=== PATIENT | female | born 1995 | race Two or more races ===

== ENCOUNTER 2024-07-13 22:12 | Day surgery (SDC) | payer BC ==
[2024-07-13 22:28] VITALS: BMI 38.9
[2024-07-13] MEDS ORDERED: hydrALAZINE 20 MG/ML VIAL SLOW IVP PRN (22:53)
== END 2024-07-13 23:57 | disposition home or self-care (01) ==
LOC: CSHLD/OP 22:12
PROVIDERS: ATTEND Obstetrics & Gynecology
DX: O36.8130 Decreased fetal movements, third trimester, not applicable or unspecified (principal); Z3A.37 37 weeks gestation of pregnancy; Z79.899 Other long term (current) drug therapy
CPT/HCPCS: 76819; 99282

== ENCOUNTER 2024-07-30 01:28 | Inpatient (IN) | payer BC ==
[2024-07-30 01:54] VITALS: BMI 38.7
[2024-07-30] MEDS ORDERED: Misoprostol 200 MCG TAB PR PRN (02:33)
[2024-07-30] MEDS ORDERED: Docusate 100 MG CAP PO PRN (02:33)
[2024-07-30] MEDS ORDERED: hydrALAZINE 20 MG/ML VIAL SLOW IVP PRN (02:33)
[2024-07-30] MEDS ORDERED: Promethazine HCl 25 MG/ML VIAL IM PRN ×2 (02:33→12:51)
[2024-07-30] MEDS ORDERED: Ondansetron PF 4 MG/2 ML Vial IVP PRN ×2 (02:33→12:51)
[2024-07-30] MEDS ORDERED: Diphenoxylate HCl/Atropine Tablet PO PRN (02:33)
[2024-07-30] MEDS ORDERED: Methylergonovine 0.2 MG/ML VIAL IM PRN (02:33)
[2024-07-30] MEDS ORDERED: Acetaminophen 500 MG TAB PO PRN (02:33)
[2024-07-30] MEDS ORDERED: Tranexamic Acid 1,000 MG/10 ML VIAL IVP PRN (02:33)
[2024-07-30] MEDS ORDERED: Carboprost 250 MCG/ML AMP IM PRN (02:33)
[2024-07-30] MEDS ORDERED: HYDROcodone/Acetaminophen 5/325 mg Tablet PO PRN (02:36)
[2024-07-30] MEDS ORDERED: Lidocaine 1% (PF) 30 ML VIAL SC PRN (02:36)
[2024-07-30] MEDS ORDERED: Ibuprofen 800 MG TAB PO PRN (02:36)
[2024-07-30] MEDS ORDERED: Oxytocin 30 units/NS 500 ML 500 ML IV SCH (02:45)
[2024-07-30 03:04] LABS: Hematocrit 34.4 % (34.9-44.5); Hemoglobin 11.7 g/dL (12.0-15.5); Mean Corpuscular Hemoglobin 30.8 pg (27.0-33.0); Mean Corpuscular Volume 90.5 fL (81.6-98.3); Mean Platelet Volume 9.9 fL (7.4-10.4); Platelet Count 221 10x3/uL (150-450); RBC Distribution Width 12.8 % (11.5-14.5); White Blood Cell (WBC) Count 11.7 10x3/uL (3.5-10.5)
[2024-07-30 03:34] LABS: HBsAg Index 0.23 S/CO (0-0.99); Hep B Surf Ag - L&D Non-Reactive S/CO (NonReactive)
[2024-07-30 03:36] LABS: Syphilis Antibody Nonreactive (Nonreactive); Syphilis Antibody Index 0.05 S/CO (<1.00 Non-Reactive)
[2024-07-30] MEDS: Oxytocin 30 units/NS 500 ML 500 ML IV SCH (06:42)
[2024-07-30] MEDS ORDERED: Bupivacaine HCl 0.5%/Epinephrine 1:200,000/PF 30 ml Vial ONE (08:00)
[2024-07-30] MEDS: fentaNYL 50 mcg/mL 1 mL Vial SLOW IVP PRN (12:40)
[2024-07-30] MEDS: fentaNYL/Ropivacaine Epidural 100 ML ONE (12:41)
[2024-07-30] MEDS ORDERED: ePHEDrine Sulfate 50 MG/10 ML VIAL SLOW IVP PRN (12:51)
[2024-07-30] MEDS ORDERED: Moisturizing Cream (Eucerin) 113 GM JAR TOP PRN (12:51)
[2024-07-30] MEDS ORDERED: diphenhydrAMINE 50 MG/ML VIAL IVP PRN (12:51)
[2024-07-30] MEDS ORDERED: Acetaminophen 325 MG TAB PO PRN (12:51)
[2024-07-30] MEDS ORDERED: Naloxone HCl 0.4 mg/ml Vial IVP PRN ×2 (12:51)
[2024-07-30] MEDS ORDERED: Lactated Ringer's 500 ML IV PRN (12:51)
[2024-07-30] MEDS ORDERED: fentaNYL 2 mcg/Ropivacaine 0.2% Epidural 100 ML CADD EPIDURAL SCH (13:00)
[2024-07-30] MEDS ORDERED: Communication Order-Pharmacy FS SCH (13:00)
[2024-07-30] MEDS: CEFAZOLIN 2 GM VIAL ONE (19:09)
[2024-07-30] MEDS ORDERED: Famotidine/PF 20 mg/2ml Vial SLOW IVP PRN (19:20)
[2024-07-30] MEDS ORDERED: Bicitra 30 ML UDCUP PO PRN (19:20)
[2024-07-30] MEDS ORDERED: CEFAZOLIN 2 GM in Sodium Chloride 0.9% 100 ML IVPB SCH (19:30)
[2024-07-30] MEDS ORDERED: Azithromycin 500 MG in Sodium Chloride 0.9% 250 ML 250 ML IVPB SCH (19:30)
[2024-07-30] MEDS: Lactated Ringer's 1,000 ML IV SCH (22:12)
[2024-07-31] MEDS ORDERED: Lanolin Ointment 7 GM TUBE TOP PRN (00:01)
[2024-07-31] MEDS ORDERED: diphenhydrAMINE 25 MG CAP PO PRN (00:01)
[2024-07-31] MEDS ORDERED: Ondansetron PF 4 MG/2 ML Vial IVP PRN ×3 (00:01→02:23)
[2024-07-31] MEDS: Ampicillin 2 GM VIAL ONE (00:01)
[2024-07-31] MEDS ORDERED: hydrALAZINE 20 MG/ML VIAL SLOW IVP PRN (00:01)
[2024-07-31] MEDS: Gentamicin 340 MG, Admixture Fee 1 EACH in Sodium Chloride 0.9% 100 ML IVPB SCH (00:31)
[2024-07-31] MEDS ORDERED: HYDROmorphone 0.5 MG/0.5 ML SYRINGE SLOW IVP PRN (02:23)
[2024-07-31] MEDS ORDERED: diphenhydrAMINE 50 MG/ML VIAL IVP PRN (02:23)
[2024-07-31] MEDS ORDERED: fentaNYL 50 mcg/mL 1 mL Vial SLOW IVP PRN (02:23)
[2024-07-31] MEDS ORDERED: Naloxone HCl 0.4 mg/ml Vial IVP PRN ×2 (02:23)
[2024-07-31] MEDS ORDERED: Naloxone HCl 0.4 mg/ml Vial IV PRN (02:23)
[2024-07-31] MEDS ORDERED: Promethazine HCl 25 MG/ML VIAL IM PRN (02:23)
[2024-07-31] MEDS ORDERED: Meperidine HCl/PF 25 MG (1 mL) VIAL SLOW IVP PRN (02:23)
[2024-07-31] MEDS ORDERED: Moisturizing Cream (Eucerin) 113 GM JAR TOP PRN (02:23)
[2024-07-31] MEDS ORDERED: Communication Order-Pharmacy FS SCH (02:30)
[2024-07-31] MEDS: Ketorolac Tromethamine 30 MG (1 mL) VIAL IVP SCH (02:38)
[2024-07-31] MEDS: fentaNYL 50 mcg/mL 1 mL Vial ONE ×4 (06:08→06:09)
[2024-07-31] MEDS: Dexamethasone 10 MG/ML VIAL ONE (06:08)
[2024-07-31] MEDS: Azithromycin 500 MG VIAL ONE (06:08)
[2024-07-31] MEDS: Morphine PF 10 MG/10 ML VIAL ONE (06:08)
[2024-07-31] MEDS: Oxytocin 10 UNITS/ML VIAL ONE (06:09)
[2024-07-31] MEDS: Boostrix 0.5 ML (Tdap) VIAL (>/=7 yrs of age) IM ONE (06:09)
[2024-07-31] MEDS: Ampicillin 2 GM in Sodium Chloride 0.9% 100 ML IVPB SCH (06:09)
[2024-07-31] MEDS: Ondansetron PF 4 MG/2 ML Vial ONE (06:09)
[2024-07-31] MEDS: Bupivacaine 0.25% HCL 30 ML VIAL ONE (06:10)
[2024-07-31] MEDS: Ferrous Sulfate 325 MG TAB PO SCH (09:54)
[2024-07-31] MEDS: Prenatal Vitamin 1 TAB PO SCH (09:57)
[2024-07-31] MEDS: Ketorolac Tromethamine 30 MG (1 mL) VIAL IVP PRN (11:56)
[2024-07-31] MEDS ORDERED: Zolpidem Tartrate 5 MG TAB PO PRN (14:31)
[2024-07-31] MEDS: HYDROcodone/Acetaminophen 5/325 mg Tablet PO PRN (15:32)
[2024-08-01 00:32] LABS: #Basophils 0.05 10x3/uL (0.0-0.2); #Eosinophils 0.04 10x3/uL (0.0-0.5); #Monocytes 1.34 10x3/uL (0.0-1.1); #Neutrophils 16.54 10x3/uL (1.5-8.4); %Basophils 0.2 % (0.0-2.0); %Eosinophils 0.2 % (0.0-6.0); %Lymphocytes 14.7 % (18.0-47.0); %Monocytes 6.3 % (0.0-10.0); %Neutrophils 77.3 % (40.0-75.0); Hematocrit 28.7 % (34.9-44.5); Hemoglobin 10.2 g/dL (12.0-15.5); Mean Corpuscular HGB CONC 35.5 g/dL (32.0-36.0); Mean Corpuscular Hemoglobin 32.4 pg (27.0-33.0); Mean Corpuscular Volume 91.1 fL (81.6-98.3); Mean Platelet Volume 9.7 fL (7.4-10.4); Platelet Count 213 10x3/uL (150-450); RBC Distribution Width 13.2 % (11.5-14.5); Red Blood Cell (RBC) Count 3.15 10x6/uL (3.90-5.03); White Blood Cell (WBC) Count 21.4 10x3/uL (3.5-10.5)
[2024-08-01 03:56] LABS: Hematocrit 30.4 % (34.9-44.5); Hemoglobin 10.4 g/dL (12.0-15.5); Mean Corpuscular HGB CONC 34.2 g/dL (32.0-36.0); Mean Corpuscular Hemoglobin 31.8 pg (27.0-33.0); Mean Platelet Volume 9.6 fL (7.4-10.4); Platelet Count 212 10x3/uL (150-450); RBC Distribution Width 13.2 % (11.5-14.5); Red Blood Cell (RBC) Count 3.27 10x6/uL (3.90-5.03); White Blood Cell (WBC) Count 19.9 10x3/uL (3.5-10.5)
[2024-08-01] MEDS: Ibuprofen 800 MG TAB PO SCH (05:51)
[2024-08-01] MEDS: Simethicone Chewable 80 MG TAB PO PRN (13:10)
[2024-08-01] MEDS: Milk Of Magnesia 30 ML UDCUP PO PRN (14:02)
[2024-08-02 15:34] VITALS: BP 115/65; TEMP 99.1
== END 2024-08-02 14:45 | disposition home or self-care (01) | DRG 788 ==
LOC: CSHLD/OP 01:28 → CSHLD 02:15 → CSHPP 07-31 04:20
PROVIDERS: ADMIT Obstetrics & Gynecology; ATTEND Obstetrics & Gynecology
PROC: 10D00Z1 Extraction of Products of Conception, Low, Open Approach (ICD-10-PCS; principal; 2024-07-31)
PROC: 3E0S3BZ Introduction of Anesthetic Agent into Epidural Space, Percutaneous Approach (ICD-10-PCS; 2024-07-31)
DX: O76 Abnormality in fetal heart rate and rhythm complicating labor and delivery (principal); Z3A.39 39 weeks gestation of pregnancy; Z37.0 Single live birth; O62.1 Secondary uterine inertia; O69.81X0 Labor and delivery complicated by cord around neck, without compression, not applicable or unspecified; O99.02 Anemia complicating childbirth; D50.0 Iron deficiency anemia secondary to blood loss (chronic)
CPT/HCPCS: 36415; 51702; 85025; 85027; 86780; 86850; 86900; 86901; 87340; 99285; J0290; J1100; J1580; J1885; J2274; J2405; J2590; J3010; J7120

== ENCOUNTER 2024-08-04 22:00 | Emergency (ER) | payer BC ==
[2024-08-05 00:07] LABS: ALT (SGPT) 14 U/L (8-55); AST (SGOT) 17 U/L (5-34); Albumin 2.5 g/dL (3.5-5.0); Alkaline Phosphatase 80 U/L (40-110); Anion Gap 14 mmol/L (10-20); BUN (Urea Nitrogen) 9 mg/dL (7.0-18.7); Bilirubin, Total 0.2 mg/dL (0.2-1.2); Calc. Creatinine Clearance 0 mL/min (70-130); Calcium 9.3 mg/dL (7.8-10.44); Carbon Dioxide 20 mmol/L (22-29); Chloride 107 mmol/L (98-107); Estimated GFR 124; Globulin 3.9 g/dL (2.4-3.5); Glucose 85 mg/dL (70-105); Potassium 4.2 mmol/L (3.5-5.1); Protein, Total 6.4 g/dL (6.0-8.3); Sodium 137 mmol/L (136-145)
[2024-08-05 00:41] LABS: Bilirubin Neg (Negative); Blood, Urine 250 (Negative); Glucose, Urine (Dipstick) Normal (Negative); Ketone, Urine Negative (Negative); Leukocyte 500 (Negative); Nitrite Negative (Negative); Protein, Urine (Dipstick) 30 mg/dl (Neg-Trace); Urobilinogen Normal mg/dL (Less than 2)
[2024-08-05 00:42] LABS: #Basophils 0.01 10x3/uL (0.0-0.2); #Eosinophils 0.22 10x3/uL (0.0-0.5); #Monocytes 0.66 10x3/uL (0.0-1.1); #Neutrophils 7.59 10x3/uL (1.5-8.4); %Basophils 0.1 % (0.0-2.0); %Lymphocytes 17.5 % (18.0-47.0); %Monocytes 6.1 % (0.0-10.0); %Neutrophils 70.8 % (40.0-75.0); Hematocrit 30.9 % (34.9-44.5); Hemoglobin 10.4 g/dL (12.0-15.5); Mean Corpuscular HGB CONC 33.7 g/dL (32.0-36.0); Mean Corpuscular Hemoglobin 30.8 pg (27.0-33.0); Mean Corpuscular Volume 91.4 fL (81.6-98.3); Mean Platelet Volume 8.7 fL (7.4-10.4); Platelet Count 252 10x3/uL (150-450); RBC Distribution Width 12.4 % (11.5-14.5); Red Blood Cell (RBC) Count 3.38 10x6/uL (3.90-5.03); White Blood Cell (WBC) Count 10.7 10x3/uL (3.5-10.5)
[2024-08-05 00:43] LABS: Clarity Slightly Cloudy (Clear)
[2024-08-05 00:56] LABS: CAUTI Indications for Culture Fever or rigors; RBC/HPF Greater than 50 HPF (0-3); Squamous Epithelial 0-3 HPF (0-3)
[2024-08-05 00:57] LABS: Bacteria/HPF 1+ HPF (None Seen); Urine Culture Reflex No No
== END 2024-08-05 01:09 | disposition home or self-care (01) ==
LOC: CSHERS 22:00
DX: N39.0 Urinary tract infection, site not specified (principal); R50.9 Fever, unspecified
CPT/HCPCS: 36415; 80053; 81001; 85025; 87428; 99283